=== PATIENT | female | born 1990 | race Hispanic/Latino ===

== ENCOUNTER 2019-01-25 16:04 | Emergency (ER) | payer SELFPAY ==
[2019-01-25 16:42] LABS: Bilirubin Negative (Negative); Blood, Urine Moderate (Negative); Glucose, Urine (Dipstick) Negative (Negative); Leukocyte Trace (Negative); Nitrite Negative (Negative); Protein, Urine (Dipstick) 30 mg/dL (Neg-Trace); Urobilinogen 0.2 mg/dL (Less than 2)
[2019-01-25 16:51] LABS: Clarity SL HAZY (Clear)
[2019-01-25 16:52] LABS: Bacteria/HPF 3+ HPF (None Seen)
[2019-01-25 16:53] LABS: Mucous/LPF 1+ LPF (<2+)
[2019-01-25 16:55] LABS: Pregnancy Test - Urine (BHCG) Negative (Negative)
[2019-01-25 16:56] LABS: Pregu Control Background? CLEAR/WHITE (CLR/WHITE); Pregu Control Bar Appear? YES (CONTROL BAR); Specific Gravity 1.022 (1.002-1.036)
[2019-01-25] MEDS ORDERED: Azithromycin 250 MG TAB ONE (17:40)
[2019-01-25] MEDS ORDERED: cefTRIAXone\\ROCEPHIN 250 MG VIAL ONE (17:40)
== END 2019-01-25 17:45 | disposition home or self-care (01) ==
LOC: NAV ERS 16:04
DX: N30.90 Cystitis, unspecified without hematuria (principal); Z20.2 Contact with and (suspected) exposure to infections with a predominantly sexual mode of transmission; F32.9 Major depressive disorder, single episode, unspecified; F90.9 Attention-deficit hyperactivity disorder, unspecified type; F17.210 Nicotine dependence, cigarettes, uncomplicated
CPT/HCPCS: 81003; 81015; 81025; 87077; 87086; 87186; 99283; J0696

== ENCOUNTER 2023-10-01 15:12 | Emergency (ER) | payer SELFPAY ==
[2023-10-01] MEDS ORDERED: Sodium Chloride 0.9% 1,000 ML ONE (15:36)
[2023-10-01] MEDS ORDERED: Morphine 4 MG/ML VIAL ONE (15:36)
== END 2023-10-01 16:30 | disposition home or self-care (01) ==
LOC: NAV ERS 15:12
DX: L02.415 Cutaneous abscess of right lower limb (principal); Z87.891 Personal history of nicotine dependence
CPT/HCPCS: 99282; J2270; J7050

== ENCOUNTER 2024-02-03 13:21 | Emergency (ER) | payer SELFPAY ==
[2024-02-03] MEDS ORDERED: Acetaminophen 325 MG TAB ONE (13:43)
[2024-02-03] MEDS ORDERED: Sulfameth/Trimethoprim DS 800-160mg TAB ONE (14:16)
[2024-02-03] MEDS ORDERED: Cephalexin 250 MG CAP ONE (14:16)
== END 2024-02-03 14:50 | disposition home or self-care (01) ==
LOC: NAV ERS 13:21
DX: L02.416 Cutaneous abscess of left lower limb (principal); I10 Essential (primary) hypertension; F17.290 Nicotine dependence, other tobacco product, uncomplicated
CPT/HCPCS: 99283